=== PATIENT | female | born 1980 | race Caucasian/White ===

== ENCOUNTER 2016-06-19 20:52 | Emergency (ER) | payer MEDICARE, MEDICAID ==
--- NOTE | 2016-07-01 14:37 | ER ---
ADMIT: 06/19/2016 RM/LOC: ER [facility] MR#: [id number] [address] [id number] ROJELIO HASSAN [facility] [place] [address] Emergency Room Report SEX: F AGE: 35 : 1980 DATE: 06/19/2016 ADDENDUM: CHIEF COMPLAINT: Shortness of breath and cough. HISTORY OF PRESENT ILLNESS: This is a 35-year-old, who had a cough for about a week now. She has also felt short of breath off and on and feels like her heart rate is fast sometimes. She also had a syncopal episode in the shower at around 8:00 today, so she came into the ER. COURSE IN THE EMERGENCY ROOM: Chest x-ray, CBC, CMP, and EKG were done, and a D-dimer. D-dimer is 0.31. CBC was normal. CMP was normal. Cardiac enzymes were all normal. EKG showed sinus rhythm at a rate of 71, no ST elevation or depression. I am sending her home with a 48-hour Holter monitors due to her thinking that she is having episodes of tachycardia. I am also sending her home with Zithromax for her bronchitis because she said she is immunosuppressed due to her rheumatoid arthritis meds. I told her to follow up with Dr. Driver next week. CLINICAL IMPRESSION: 1. Bronchitis. 2. Syncopal episode. DELILAH Ernst / Bhavin Peres MD / miguelito JOB #: [id number] CC: Bhavin Peres MD, Attending Physician Eduardo Driver MD, Family Physician
== END 2016-06-19 23:52 | disposition home or self-care (01) ==
LOC: ER 20:52
DX: J40 Bronchitis, not specified as acute or chronic (principal); R55 Syncope and collapse; F17.210 Nicotine dependence, cigarettes, uncomplicated; Z85.41 Personal history of malignant neoplasm of cervix uteri; Z98.890 Other specified postprocedural states; Z88.8 Allergy status to other drugs, medicaments and biological substances; Z79.899 Other long term (current) drug therapy; Z90.711 Acquired absence of uterus with remaining cervical stump